=== PATIENT | female | born 1960 | race Caucasian/White ===

== ENCOUNTER 2016-05-14 18:04 | Emergency (ER) | payer OTHER, MEDICARE ==
[~2016-05-14] VITALS: Ht 182.9 cm; Wt 104.3 kg
[~2016-05-14 18:04] MED LIST: ASPIRIN81 M4 PO; Avelox PO; BACTRIM 400-801 EACH PO; CINNAMON PLUS1 EACH PO; CLOPIDOGREL75 M1 PO; COUMADIN 5 MG TA5 MG PO; DILAUDID2 M1 PO; DILAUDID2 MG PO; DOCUSATE SODIU100 MG PO; FLAX OIL1000 M1 PO; HYDRODIURIL 2525 MG PO; HYSINGLA ER20 MG PO; IRON325 M1 PO; LASIX40 M1 PO; METHOCARBAMOL500 M1 PO; MORPHINE SULFAT15 M1 PO; MORPHINE SULFAT15 M3; MORPHINE SULFAT15 M3 PO; NEURONTIN600 M1 PO; PANTOPRAZOLE SO40 M1 PO; PAROXETINE40 MG PO; PAXIL20 M1 PO; PERCOCET 10-321 EACH PO; PERCOCET 325 MG1 TA2 PO; PERCOCET 5-3251 EACH PO; PRINIVIL5 M1 PO; PROAIR HFA8.5 GM INH; PYRIDIUM200 M1 PO; THEO-24400 MG PO; ULTRAM50 M1 PO; VERAPAMIL ER240 MG PO; VERAPAMIL HCL240 MG PO; VICODIN 5-3001 EACH PO; VITAMIN C1000 M2 PO; VITAMIN D2000 UNIT PO; VITAMIN D400 I1 PO; VITAMIN E400 UNI4 PO; ZITHROMAX Z PA250 MG PO; ZYRTEC10 M3 PO; [UNRECOGNIZED DRUG - CODE] PO; [UNRECOGNIZED DRUG - OTHER] PO
[2016-05-14 18:18] VITALS: BP 143/84
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
== END 2016-05-14 19:35 ==
LOC: ERH 18:04
DX: M79.602 Pain in left arm (principal)

== ENCOUNTER 2016-05-18 10:13 | Emergency (ER) | payer OTHER, MEDICARE ==
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
--- NOTE | 2016-05-18 14:03 | ULTRASOUND REPORT ---
EXAMINATION: US TRIPLEX UPPER EXTREMITY, RIGHT CLINICAL INFORMATION: Right upper extremity pain and swelling. Elbow ecchymosis. COMPARISON: None. TECHNIQUE: Color-flow triplex imaging with spectral analysis and compression Doppler were performed on the right upper extremity. FINDINGS: There is normal pulsatile flow within the examined innominate, right internal jugular and subclavian veins without venous thrombosis. The grayscale and pulsed color Doppler images show normal axillary, brachial, basilic and cephalic veins. There is no focal fluid collection within the examined extremity. IMPRESSION: No evidence of deep vein thrombosis in the right upper extremity.
[2016-05-18 14:27] VITALS: BP 130/60
== END 2016-05-18 14:28 ==
LOC: ERH 10:13
DX: M79.89 Other specified soft tissue disorders (principal)
CPT/HCPCS: 96374; 96376

== ENCOUNTER 2016-05-29 16:46 | Inpatient (IN) | payer OTHER, MEDICARE ==
[~2016-05-29] VITALS: Ht 182.9 cm; Wt 104.3 kg
--- NOTE | 2016-05-29 16:57 | NUR ---
EKG DONE IN [place] [facility]
--- NOTE | 2016-05-29 17:00 | NUR ---
Informed waiting has been performed.
--- NOTE | 2016-05-29 17:00 | NUR ---
TRIAGE: PT TO ER C/C CHEST PAIN, NECK PAIN AND RT ARM PAIN, ONSET ABOUT NOON, CONSTANT SINCE ONSET. DESCRIBES BURNING PRESSURE TYPE PAIN. HAS RECENT CARDIAC HX INCLUDING CAROTID STENT IN APRIL. HAD EKG DONE IN [place] PRIOR TO TRIAGE.
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
--- NOTE | 2016-05-29 17:28 | NUR ---
LABS SENT FROM [facility] (BLUE,SST,LAV,ARGUETA)
[2016-05-29 17:35] LABS: ABSOLUTE BASOPHIL COUNT 0.1 /CUMM (0.0-0.2); ABSOLUTE EOSINOPHIL COUNT 0.3 /CUMM (0.0-0.7); ABSOLUTE GRANULOCYTE CT 6.6 /CUMM (1.4-6.5); ABSOLUTE LYMPH COUNT 2.3 /CUMM (1.2-3.4); ABSOLUTE MONOCYTE COUNT 0.4 /CUMM (0.10-0.60); BASOPHIL % 0.9 % (0.0-2.0); EOSINOPHIL % 2.6 % (0-5); GRANULOCYTE % 68.4 % (42.2-75.2); HEMATOCRIT 41.6 % (37-47); MEAN CORPUSCULAR HGB 30.1 PG (27.0-31.0); MEAN CORPUSCULAR HGB CONC 34.4 G/DL (33.0-37.0); MEAN CORPUSCULAR VOLUME 87.5 FL (81.0-99.0); MEAN PLATELET VOLUME 7.3 FL (7.4-10.4); PLATELET COUNT 292 /CUMM (130-400); RBC DISTRIBUTION WIDTH 13.3 % (11.5-14.5); RED BLOOD CELL CT 4.75 /CUMM (4.20-5.40); WHITE BLOOD CELL COUNT 9.7 /CUMM (4.8-10.8)
--- NOTE | 2016-05-29 17:35 | NUR ---
PT STATES SHE TOOK 325 ASA AND HER PLAVIXS TODAY RAN Zheng PA-C IN ROOM FOR EVAL.
[2016-05-29 17:42] LABS: PT 10.5 SEC (9.4-12.5); PTT 38 SEC (25-37)
--- NOTE | 2016-05-29 18:02 | NUR ---
PT STATES SHE DID NOT GET ANY RELIEF FROM THE PRESSURE AFTER THE NITRO PT THEN GIVEN HER PERCOCET WILL CONT. TO MONITOR
--- NOTE | 2016-05-29 18:15 | RADIOLOGY REPORT ---
EXAMINATION: XR PORTABLE CHEST CLINICAL INFORMATION: Chest pain. Rule out cardiomegaly. COMPARISON: 04/21/2016 including CTA chest TECHNIQUE: Portable view of the chest was obtained. FINDINGS: Low lung volumes. Left base atelectasis. No focal consolidation or mass. No pleural effusion or pneumothorax. Normal pulmonary vascularity. Heart size is upper limits of normal, likely accentuated by the AP portable technique. The appearance is similar to the prior CTA chest 04/21/2016. There was neither cardiomegaly nor a pericardial effusion at that time. Lower cervical fusion hardware seen. IMPRESSION: No acute pulmonary disease. Cardiac silhouette is slightly prominent, likely accentuated by AP portable technique.
--- NOTE | 2016-05-29 18:57 | NUR ---
PT STATES HER CHEST PRESSURE IS MUCH BETTER AFTER APPLYING THE NITRO PASTE HEPRIN INFUSING DIRECTED
--- NOTE | 2016-05-29 19:31 | NUR ---
PT REPORTS CHEST PRESSURE IMPROVING. PT APPEARS COMFORTBALE. RESP UNLABORED. NO APPARENT DISTRESS.
--- NOTE | 2016-05-29 19:42 | NUR ---
BED ASSIGNMENT [id number]
[2016-05-29] MEDS ORDERED: ALPRAZOLAM0.25 M1 PO (20:03)
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
[2016-05-29 21:01] VITALS: BP 116/78
--- NOTE | 2016-05-29 22:01 | NUR ---
PT CAME UP FROM ED AT 2029; PT CAME UP VIA STRETCHER ON 2L02 VIA NC; HEPARIN DRIP IN LH RUNNING AT 20U/HR; PT A/Ox3 BEING ACCOMPANIED BY ; PT ON HEART MONITOR; UPON ARRIVAL, PT SWITCHED TO OUR TELE MONITOR AND 2L02 NC; PT ORIENTED TO ROOM, GIVEN CALL MALCOLM; ASSESSMENT DONE; NO CHEST PAIN AT THIS TIME
[2016-05-29] MEDS ORDERED: CRESTOR10 M1 PO (22:05)
[2016-05-30 02:24] LABS: PTT 37 SEC (25-37)
--- NOTE | 2016-05-30 08:38 | PN- Housestaff ---
Subjective Follow-up For: Chest pain Complaints: no complaints Tele-Events Since Last Visit: Bigeminy/normal sinus rhythm./PVC;HR -60-70/min Subjective: Patient is seen and examined at the bedside. She was not having any active complain. She denies of any chest pain, nausea, vomiting, dizziness, chest pressure. Review of Systems Constitutional: Denies: no symptoms. EENTM: Denies: no symptoms. Cardiovascular: Denies: no symptoms. Respiratory: Denies: no symptoms. Gastrointestinal: Denies: no symptoms. Genitourinary: Denies: no symptoms. Musculoskeletal: Denies: no symptoms. Skin: Denies: no symptoms. Neurological/Psychological: Denies: no symptoms. Objective Last 24 Hrs of Vital Signs/I&O Vital Signs Date Time Temp Pulse Resp B/P Pulse O2 O2 Flow FiO2 Ox Delivery Rate 05/30 1501 98.2 80 20 126/78 94 Room Air 05/30 0919 97.8 76 20 120/70 05/30 0918 97.8 76 20 120/70 05/30 0856 97.8 76 20 120/70 100 Room Air 05/30 0000 Nasal 2.0L Cannula 05/29 2208 96 Nasal 2.0L Cannula 05/29 2101 98.2 77 20 116/78 97 Nasal 2.0L Cannula 05/29 1934 75 18 107/62 96 Nasal Cannula 05/29 1856 69 16 101/56 98 Room Air 05/29 1749 98.0 81 16 125/64 98 Nasal 2.0L Cannula 05/29 1736 98 Room Air 05/29 1656 98.3 82 20 114/75 97 Room Air Intake & Output 05/30 1600 05/30 0800 05/30 0000 Intake Total 1600 300 Output Total 900 Balance 700 300 Intake, Oral 1600 300 Output, Urine 900 Patient 104.326 kg Weight Physical Exam General Appearance: Alert, Oriented X3, Cooperative, No Acute Distress Skin: No Rashes, No Breakdown, No Significant Lesion HEENT: Atraumatic, PERRLA, EOMI Neck: Supple, No JVD Cardiovascular: Regular Rate, Normal S1, Normal S2 Lungs: Clear to Auscultation, Normal Air Movement Abdomen: Normal Bowel Sounds, Soft, No Tenderness Neurological: Normal Gait, Normal Speech Extremities: No Clubbing, No Cyanosis, No Edema, Normal Pulses Vascular: Normal Pulses Assessment/Plan Assessment: 55-year-old chronic smoker female with PMH CAD sp stent in Apr 2016, HTN, HLD, frequent PVCs, chronic pain from OA and RA, not on NSAIDs due to allergy, hyperparathyroidism, asthma, presented to the ED for chest pressure. Vital signs-temperature 98.2, pulse 80, respiratory rate 20, blood pressure 126/ 78, SPO2 94% Problem list - Unstable angina/non-ST elevation IL Coronary artery disease s/p stent in RCA in April 2016 Hypertension Hyperlipidemia Chronic OA/rheumatoid arthritis Hyperparathyroidism Asthma Plan- We will follow Dr. Michaud's recommendation According to him, patient may need nuclear stress test as her troponin and EKG were normal to rule out any ischemia, as patient had stent recently According to Dr. Michaud patient can go home if the nuclear stress test comes back negative, with advice to follow Dr. Michaud within a week of discharge. we stopped the heparin drip and nitroglycerin before patient went for stress test. We will continue all home medication Diet-heart healthy diet DVT prophylaxis-ALP S/heparin CODE STATUS-full code Problem List: 1. Chest pain 2. Hyperlipidemia 3. Hypertension 4. Smoking Pain Ratin Pain Location: Chest Pain Goal: Remain pain free Pain Plan: mild to moderate Tomorrow's Labs & Rationales: none DVT/Prophylaxis: mechanical, pharmacological
[2016-05-30 08:56] VITALS: BP 120/70
[2016-05-30 15:01] VITALS: BP 126/78
--- NOTE | 2016-05-30 15:06 | PN- Cardiology ---
Subjective Subjective: * Minimal chest discomfort that is similar to a chronic discomfort noted over the past two years. The pressure that the patient came in with has abated. * Normal cardiac enzymes x three sets Objective Vital Signs and I&Os Vital Signs Date Time Temp Pulse Resp B/P Pulse O2 O2 Flow FiO2 Ox Delivery Rate 05/30 1501 98.2 80 20 126/78 94 Room Air 05/30 0919 97.8 76 20 120/70 05/30 0918 97.8 76 20 120/70 05/30 0856 97.8 76 20 120/70 100 Room Air 05/30 0000 Nasal 2.0L Cannula 05/29 2208 96 Nasal 2.0L Cannula 05/29 2101 98.2 77 20 116/78 97 Nasal 2.0L Cannula 05/29 1934 75 18 107/62 96 Nasal Cannula 05/29 1856 69 16 101/56 98 Room Air 05/29 1749 98.0 81 16 125/64 98 Nasal 2.0L Cannula 05/29 1736 98 Room Air 05/29 1656 98.3 82 20 114/75 97 Room Air Intake & Output 05/30 1600 05/30 0800 05/30 0000 05/29 1600 05/29 0800 05/29 0000 Intake Total 1600 300 Output Total 900 Balance 700 300 Intake, Oral 1600 300 Output, Urine 900 Patient 230 lb Weight Physical Exam: General: WD/ WN female in NAD; alert and oriented x 3 Neck: no JVD, no carotid bruit Heart: RRR with ectopy Lungs: clear clear bilaterally Extremities: no edema Assessment/Plan Assessment/Plan * This patient has normal troponins despite prolonged chest discomfort and a normal appearing ECG without ischemic changes. I do not have a high suspicion of an ACS. Nevertheless, due to her recent stent placement we will risk stratify her with a treadmill nuclear stress test. Stop her NTG paste and IV heparin. * If the patient remains pain free off the NTG and has a normal stress test then she will be discharged to home on her usual medications with follow up in the office in one week. Continue telemetry? Yes
--- NOTE | 2016-05-30 16:52 | Patient Discharge Instructions ---
Discharge Instructions General Discharge Information You were seen/treated for: Chest pain, probably angina Special Instructions: Please follow-up with Dr. Michaud within a week of discharge Diet Continue normal diet: No Recommended Diet: Heart Healthy Activity Full Activity/No Limits: No (as tolerated) Acute Coronary Syndrome Inclusion Criteria At DC or during hospital stay patient has or had the following: ACS DIAGNOSIS Yes Discharge Core Measures Meds if any: Prescribed or Continued at Discharge Meds if any: NOT Prescribed or Continued at Discharge Congestive Heart Failure Inclusion Criteria At DC or during hospital stay patient has or had the following: CHF DIAGNOSIS No Discharge Core Measures Meds if any: Prescribed or Continued at Discharge Meds if any: NOT Prescribed or Continued at Discharge Cerebrovascular accident Inclusion Criteria At DC or during hospital stay patient has or had the following: CVA/TIA Diagnosis No Discharge Core Measures Meds if any: Prescribed or Continued at Discharge Meds if any: NOT Prescribed or Continued at Discharge Venous thromboembolism Inclusion Criteria VTE Diagnosis No VTE Type NONE VTE Confirmed by (Test) NONE Discharge Core Measures - Per Current guidelines, there needs to be overlap - treatment for the first 5 days of Warfarin therapy. - If discharged on Warfarin prior to 5 days of - overlap therapy, the patient will need to be - assessed for post discharge needs including - *Post discharge parental anticoagulation - *Warfarin and/or parental anticoagulation education - *Follow up date to check INR post discharge At least 5 days overlap therapy as Inpatient No Meds if any: Prescribed or Continued at Discharge Warfarin No Note: Overlap Therapy is Warfarin and Anticoagulant Meds if any: NOT Prescribed or Continued at Discharge
[2016-05-30] MEDS ORDERED: ASPIRIN81 M4 PO (17:33)
--- NOTE | 2016-05-30 17:53 | NUCLEAR MEDICINE REPORT ---
EXERCISE STRESS AND RESTING SPECT MYOCARDIAL PERFUSION IMAGING STUDY WITH GATED SPECT IMAGES: CLINICAL INDICATION: Chest pressure, stent in place. PROCEDURE: Regional myocardial perfusion was assessed using a 1 day protocol. Stress images were obtained on 05/30/2016 following the intravenous administration of 25.7 mCi Tc 99m Myoview. Stress was performed using the standard Carlos protocol, with the patient reaching a peak heart rate of 92% maximal predicted heart rate. Rest images were obtained 05/30/2016 following the intravenous administration of 41.7 mCi Technetium 99m Myoview. Single photon emission tomographic (SPECT) images were obtained. SPECT images were acquired in a 64 x 64 matrix of 64 projections over 180 degrees. These were reconstructed into standard short axis, horizontal and vertical long axis cardiac projections. FINDINGS: The post stress images show the left ventricular chamber to be normal in size. There is mildly decreased activity in a small region involving the mid anteroseptal wall and adjacent mid inferoseptal wall. Activity in the other hernandes appears normal. The rest images show improvement in the anteroseptal and inferoseptal wall abnormalities described above with no definite regions of abnormally decreased activity present on the rest images. The other hernandes are unchanged from the post stress images and appear normal. The stress images were obtained using a gated SPECT technique, which permits visualization of wall motion and calculation of the left ventricular ejection fraction. The left ventricular chamber is normal in size. No left ventricular wall motion abnormalities are present. The calculated left ventricular ejection fraction is 55% on the stress study. No previous study is available for comparison. IMPRESSION: A small mild abnormality is noted in the mid anteroseptal and adjacent mid inferoseptal hernandes suspicious for a small region of reversible ischemia in these regions. No other perfusion abnormalities are noted. Left ventricular wall motion and ejection fraction are normal.
--- NOTE | 2016-06-26 12:27 | Discharge Summary ---
Visit Information Visit Dates Admission Date: 05/29/16 Discharge Date: 05/30/16 Hospital Course Course Attending Physician: MARYAM ZARAGOZA PhD,DANIAL Garcia Primary Care Physician: DANIAL MCCULLOUGH MD Hospital Course: Nelli is a 55 year old female with history of hypertension and asthma. After multiple admissions in April for chest discomfort this patient underwent a cardiac catheterization with stent placement.She had been doing well post procedure until earlier today when she suddenly noted a moderate to severe precordial chest pressure radiating to her right arm. This discomfort was associated with mild nausea and diaphoresis. She also notes mild shortness of breath and palpitations. Her ECG does not show any acute ischemic changes at present and his first troponin is normal. Nelli also reports palpitations and occasional chest fluttering associated with lightheadedness. These palpitations tend to be more prominent when lying down. She has frequent PVC's that are not new for her. Finally, this patient has hyperparathyroidism with increased urinary calcium and a serum calcium level that is at the upper limits of normal. This patient was ruled out for an [place] and felt improved. Our plan was to perform an outpatient stress test to risk stratify for ischemia. An echo showed mild septal hypertrophy with impaired LV relaxation and normal EF of 60%. Mild PI and trace MR were also noted. Allergies: Coded Allergies: Penicillins (Severe, ANAPHYLAXIS 05/29/16) cefaclor (Severe, ANAPHYLAXIS 05/29/16) cephalexin (Severe, ANAPHYLAXIS 05/29/16) garlic (Severe, ANAPHALACTIC 05/29/16) latex (Severe, ANAPHYLAXIS 05/29/16) NSAIDS (Non-Steroidal Anti-Inflamma (ANAPHYLAXIS 05/29/16) chlorhexidine (RASH FROM HIBICLENS SCRUB 05/29/16) Uncoded Allergies: CLEANING CHEMICALS (CAN TRIGGER ASTHMA 01/26/15) FRAGRANCE (CAN TRIGGER ASTHMA 07/02/15) STEROID (RESP, RASH 07/02/15) TOXICODENDRON (UNKNOWN 07/02/15) Disposition Summary Disposition Principal Diagnosis: chest pain Additional Diagnosis: none Discharge Disposition: home or self care Discharge Instructions General Discharge Information Code Status: Full Code Patient's Diet: low fat/ low cholesterol Patient's Activity: as tolerated Follow-Up Instructions/Appts: Follow up in the office in one week. Medications at Discharge Discharge Medications: Continue taking these medications: Lisinopril (Prinivil) 5 MG TABLET 1 Tablet ORAL DAILY Comments: Last Taken:02/03/15 Time:8:47am DOCUMENTED PER CMR DURING PRE-SX INTERVIEW Pantoprazole Sodium (Pantoprazole Sodium) 40 MG TABLET.DR 1 Tablet ORAL DAILY BEFORE BREAKFAST Comments: took prilosect while admited last taken: 02/03/15 time: 5:52am DOCUMENTED PER CMR DURING PRE-SX INTERVIEW Gabapentin (Gabapentin) 600 MG TABLET 600 Milligram ORAL THREE TIMES DAILY Qty = 180 Comments: Last Taken:02/03/15 Time:5:52am DOCUMENTED PER CMR DURING PRE-SX INTERVIEW Flaxseed Oil (Flax Oil) 1,000 MG SGL 1 Tablet ORAL TWICE DAILY Comments: DOCUMENTED PER CMR DURING PRE-SX INTERVIEW Cetirizine Hydrochloride (Zyrtec) 10 MG TAB 1 Tablet ORAL DAILY Comments: DOCUMENTED PER CMR DURING PRE-SX INTERVIEW VERAPAMIL HCL (Verapamil ER) [address] 1 Tablet ORAL DAILY Comments: Last Taken:02/03/15 Time:8:52am DOCUMENTED PER CMR DURING PRE-SX INTERVIEW PAROXETINE HCL (Paroxetine Hydrochloride) 20 MG TAB 60 Milligram ORAL DAILY Comments: Last Taken:02/03/15 Time:1113 DOCUMENTED PER CMR DURING PRE-SX INTERVIEW Furosemide (Lasix) 40 MG TAB 1 Tablet ORAL DAILY Comments: Last Taken: last took 20mg on 02/03/15 Time:8:52am DOCUMENTED PER CMR DURING PRE-SX INTERVIEW Ascorbic Acid (Vitamin C) 1,000 MG TAB 1 Tablet ORAL TWICE DAILY Comments: DOCUMENTED PER CMR DURING PRE-SX INTERVIEW Cinnamon Bark/Chromium Picolin (Cinnamon Plus Chromium Capsule) 500 MG-100 MCG CAPSULE 1,000 Milligram ORAL TWICE DAILY Comments: PER PT Albuterol Sulfate (Proair Hfa) 90 MCG HFA.AER.AD 2 Puff Inhale through mouth Q4H as needed for ASTHMA Comments: NOT GIVEN Vitamin E Acetate (Vitamin E) 400 UNIT CAPSULE 1 Capsule ORAL DAILY Comments: PER PT Oxycodone HCl/Acetaminophen (Percocet 10-325 MG Tablet) 10 MG-325 MG TABLET 1 Tablet ORAL 2 x Daily as needed as needed for PAIN Cholecalciferol (Vitamin D3) (Vitamin D) 2,000 UNIT CAPSULE 1 Capsule ORAL DAILY Clopidogrel Bisulfate (Clopidogrel) 75 MG TABLET 1 Tablet ORAL DAILY Qty = 30 Theophylline Anhydrous (Teja-24) 400 MG CAP.ER.24H 2 Tablet ORAL DAILY Days = 28 Alprazolam (Alprazolam) 0.25 MG TABLET 0.25 Milligram ORAL DAILY BEFORE BREAKFAST Qty = 20 Rosuvastatin Calcium (Crestor) 10 MG TABLET 1 Tablet ORAL BEDTIME The following medications have been changed: Old: Aspirin (Aspirin*) 81 MG TAB.CHEW 1 Tablet ORAL DAILY Qty = 30 New: Aspirin (Aspirin*) 81 MG TAB.CHEW 2 Tablet ORAL DAILY Qty = 30 Copies To: MARYAM ZARAGOZA PhD,DANIAL Garcia Attending MD Review Statement Documenting Attending: MARYAM ZARAGOZA PhD,DANIAL Garcia
== END 2016-05-30 18:07 | DRG 313 ==
LOC: ENRESERVTM → ENRESERVDT → ERH 16:46 → 1NO 18:47 → ERHI 18:47 → 1NO 20:30
PROVIDERS: Emergency Medicine; ADMIT Internal Medicine Interventional Cardiology
DX: R07.9 Chest pain, unspecified (principal); I25.10 Atherosclerotic heart disease of native coronary artery without angina pectoris; I10 Essential (primary) hypertension; M06.9 Rheumatoid arthritis, unspecified; J45.909 Unspecified asthma, uncomplicated; K21.9 Gastro-esophageal reflux disease without esophagitis; M79.7 Fibromyalgia; F17.210 Nicotine dependence, cigarettes, uncomplicated
CPT/HCPCS: 1NP; 6020; 78452; 93005; 93010; 93016; 93017; A9502; G0378; J1644; J3490; J7060

== ENCOUNTER 2016-07-28 14:24 | Observation (INO) | payer OTHER, MEDICARE ==
[~2016-07-28] VITALS: Ht 182.9 cm; Wt 106.6 kg
[~2016-07-28 14:24] MED LIST changes: +ALPRAZOLAM0.25 M1 PO; +CRESTOR10 M1 PO
--- NOTE | 2016-07-28 14:36 | NUR ---
Informed waiting has been performed.
--- NOTE | 2016-07-28 14:36 | NUR ---
TRIAGE: PT TO ER C/C PAIN TO MID CHEST WITH RADIATION UP TO SHOULDER AND MID BACK PAIN. ONSET WITH BACK PAIN A WEEK AGO AND OTHER PAIN LAST NIGHT. WAS SENT TO ER BY DR FRANCISCO TO R/O CLOT. PT WAS ADMITTED IN MAY FOR ?CLOT. WAS STARTED ON HEPARIN. TAKES PLAVIX AND ASPIRIN DAILY. HAD EKG DONE IN [place] PRIOR TO TRIAGE, NSR 88.
--- NOTE | 2016-07-28 14:50 | NUR ---
IV EST #20 RH
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
--- NOTE | 2016-07-28 15:15 | NUR ---
LABS DRAWN AND SENT TO THE LAB
--- NOTE | 2016-07-28 15:20 | NUR ---
PT TO RAD VIA STRETCHER
[2016-07-28 15:21] LABS: ABSOLUTE BASOPHIL COUNT 0.1 /CUMM (0.0-0.2); ABSOLUTE EOSINOPHIL COUNT 0.2 /CUMM (0.0-0.7); ABSOLUTE GRANULOCYTE CT 7.3 /CUMM (1.4-6.5); ABSOLUTE LYMPH COUNT 2.2 /CUMM (1.2-3.4); ABSOLUTE MONOCYTE COUNT 0.4 /CUMM (0.10-0.60); BASOPHIL % 0.6 % (0.0-2.0); GRANULOCYTE % 71.8 % (42.2-75.2); HEMATOCRIT 43.5 % (37-47); MEAN CORPUSCULAR HGB 29.4 PG (27.0-31.0); MEAN CORPUSCULAR HGB CONC 33.5 G/DL (33.0-37.0); MEAN PLATELET VOLUME 7.7 FL (7.4-10.4); PLATELET COUNT 297 /CUMM (130-400); RBC DISTRIBUTION WIDTH 13.1 % (11.5-14.5); RED BLOOD CELL CT 4.95 /CUMM (4.20-5.40); WHITE BLOOD CELL COUNT 10.2 /CUMM (4.8-10.8)
--- NOTE | 2016-07-28 15:26 | NUR ---
NAHUM Briseno AT BEDSIDE
[2016-07-28] MEDS ORDERED: NITROGLYCERIN1 EACH TOP (15:41)
--- NOTE | 2016-07-28 15:52 | RADIOLOGY REPORT ---
EXAMINATION: XR CHEST CLINICAL INFORMATION: Chest pain COMPARISON: 05/29/2016 TECHNIQUE: 2 views of the chest were obtained. FINDINGS: Cervical fusion hardware is noted. The lungs are well expanded. There is no focal consolidation, edema, or effusion. No pneumothorax. The cardiomediastinal silhouette is within normal limits. No acute osseous abnormality. IMPRESSION: No acute pulmonary findings.
--- NOTE | 2016-07-28 15:57 | NUR ---
PT STATES SHE HAS NO RELIEF WITH NITRO NAHUM Briseno AWARE
--- NOTE | 2016-07-28 16:04 | NUR ---
NOTRO PASTE ADMIN TO PT
--- NOTE | 2016-07-28 16:29 | NUR ---
PT MEDICATED PER EMAR FOR PAIN 02/10
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
--- NOTE | 2016-07-28 17:54 | NUR ---
PT ADMITTED TO ROOM 180-2
--- NOTE | 2016-07-28 18:07 | NUR ---
REPORT GIVEN TO LARRY SOLER
--- NOTE | 2016-07-28 18:33 | NUR ---
MESSAGE LEFT FOR TRANSPORT
[2016-07-28 19:47] VITALS: BP 104/52
--- NOTE | 2016-07-28 23:02 | NUR ---
PT ARRIVED TO FLOOR AT APPROXIMATELY 1900 VIA STRETCHER ACCOMPANIED BY RN AND MST, AT BEDSIDE. VS 104/52 HR 83 02 95% RA TEMP 98.5 RESP 18. PT C/O 10/10 CP AT THIS TIME MD AWARE NEXT EKG/TROP ORDERED FOR 2100. 2MG IV MORPHINE GIVEN PER EMAR WITH MINIMAL RELIEF NOTED. PT IS CALM AND COOPERATIVE, INDEPENDENT TO TOILET AND IN NO SIGNS OF VISIBLE DISTRESS. PT IS NOW RESTING COMFORTABLY IN BED. 2100 TROP WAS NEGATIVE, THIRD TROP/EKG AT 0300. PT ON TELE, WILL CONTINUE TO MONITOR.
[2016-07-29 00:49] VITALS: BP 104/52
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
--- NOTE | 2016-07-29 07:03 | PN- Housestaff ---
Subjective Follow-up For: Chest pain Tele-Events Since Last Visit: Sinus rhythm 67-75 bpm Subjective: I saw and examined the patient today morning she still reports chest pain radiating to the back, sharp, 10/10. Denies any shortness of breath, fever, dizziness, palpitations. Appears more arthritis related, as patient had a history of arthritis. Review of Systems Constitutional: Reports: see HPI. EENTM: Reports: see HPI. Comments: ROS negative except the above. Objective Last 24 Hrs of Vital Signs/I&O Vital Signs Date Time Temp Pulse Resp B/P Pulse O2 O2 Flow FiO2 Ox Delivery Rate 07/29 0049 98.6 69 18 104/52 93 Room Air 07/28 1947 98.5 83 18 104/52 95 Room Air 07/28 1701 98.5 78 18 119/57 97 Room Air 07/28 1527 Room Air 07/28 1433 98.8 91 20 132/73 96 Room Air Intake & Output 07/29 0800 07/29 0000 07/28 1600 Intake Total 800 300 Output Total Balance 800 300 Intake, Oral 800 300 Patient 106.594 kg 106.594 kg Weight Physical Exam General Appearance: Alert, Oriented X3, Cooperative Skin: No Rashes, No Breakdown HEENT: Atraumatic, PERRLA, EOMI Neck: Supple Cardiovascular: Regular Rate, Normal S1, Normal S2, No Murmurs Lungs: Clear to Auscultation, Normal Air Movement Abdomen: Normal Bowel Sounds, Soft, No Tenderness Neurological: Normal Gait, Normal Speech, Strength at 5/5 X4 Ext Extremities: No Clubbing, No Cyanosis, No Edema Vascular: Normal Pulses, Pulses Symmetrical Current Medications: Current Medications Sig/Trung Start time Last Medication Dose Route Stop Time Status Admin Acetaminophen 650 MG Q6P PRN 07/28 1929 AC PO Acetaminophen 1,000 MG Q6P PRN 07/28 193 CAN IV Albuterol Sulfate 2 PUF Q4H PRN 07/28 1830 AC INH Alprazolam 0.25 MG DAILY 07/29 1000 DC PO 08/05 0959 Alprazolam 0.25 MG 07/28 AC 07/28 PO 08/04 2159 2142 Ascorbic Acid 1,000 MG DAILY 07/29 1000 AC PO Aspirin 162 MG DAILY 07/29 1000 AC PO Atorvastatin Calcium 40 MG 1700 07/29 1700 AC PO Cholecalciferol 2,000 IU DAILY 07/29 1000 AC PO Clopidogrel Bisulfate 75 MG DAILY 07/29 1000 AC PO Enoxaparin Sodium 40 MG DAILY 07/29 1000 AC SC Furosemide 40 MG DAILY 07/29 1000 AC PO Gabapentin 600 MG Q8 07/28 2200 AC 07/29 PO 0631 Lisinopril 5 MG DAILY 07/29 1000 AC PO Morphine Sulfate 2 MG Q6-PRN PRN 07/28 1930 AC 07/28 IV 1952 Morphine Sulfate 4 MG ONCE ONE 07/28 1700 DC IV 07/28 1701 Morphine Sulfate 0 .STK-MED ONE 07/28 1629 DC .ROUTE Morphine Sulfate 4 MG ONCE ONE 07/28 1545 DC 07/28 IV 07/28 1546 1628 Nicotine 14 MG DAILY 07/28 1821 AC 07/28 TOP 2017 Nitroglycerin 0.4 MG DAILY 07/29 1000 AC TOP Nitroglycerin 0 .STK-MED ONE 07/28 1604 DC TOP Nitroglycerin 0.4 MG ONCE ONE 07/28 1545 DC 07/28 SL 07/28 1546 1546 Nitroglycerin 1 GM ONCE ONE 07/28 1545 DC 07/28 TOP 07/28 1546 1604 Nitroglycerin 0.4 MG ONCE ONE 07/28 1530 DC 07/28 SL 07/28 1531 1532 Oxycodone/ 2 TAB BID PRN 07/28 1830 AC Acetaminophen PO Paroxetine HCl 60 MG DAILY 07/29 1000 AC PO Theophylline 400 MG Q8 07/28 2200 AC 07/29 PO 0631 Verapamil HCl 240 MG DAILY 07/29 1000 AC PO Last 24 Hrs of Lab/Daniel Results Last 24 Hrs of Labs/Mics: Laboratory Tests 07/29/16 0350: Troponin I < 0.01 07/28/16 2100: Troponin I < 0.01 Assessment/Plan Assessment: 55-year-old female with PMH significant for CAD s/p stent placement in April 2016, HTN, HLD, frequent PVCs, chronic pain from OA and RA not on NSAIDs due to allergy, hyperparathyroidism and asthma presents with 1 day of constant chest pressure associated with back pain, concerning for possible ACS. # Unstable angina Patient carries a recent h/o CAD with stent placement and thus needs a workup to r/o ACS and PE. No significant ST or T wave changes compared to the previous EKG. * Admited to [facility] * [facility] EKGs and trops are negative so far * Appreciate cardio recs (Dr. Michaud) * NG paste 1/2 inch Q6, aspirin and plavix for now * Probable cause of pain is not related to heart, most probably related to her arthritis. * Stable for discharge today. # CAD sp stent/HTN/HLD * Continue home meds lasix 40 mg daily, lisinopril 5 mg daily, verapamil ER 240 daily, crestor # Chronic pain * Continue home meds gabapentin 600 tid, perc 10-325 bid prn # Asthma * Continue home meds albuterol, cetirizine, theophyline # Mental health * Continue home meds paroxetine 60 mg daily, xanax 0.25 mg daily # Nicotine dependence * Nicotine patch 21 daily # GI and other home meds * Continue pantoprazole, cinnamon+chromium, flaxseed, Vit E, vit D3, vit C - Heart healthy diet - Mild pain pathway - DVTppx with SQH and ALPs - Full code Problem List: 1. Arthritis 2. Asthma 3. Chest pain 4. Hypertension 5. Hyperlipidemia Pain Ratin Pain Location: chest pain Pain Goal: Remain pain free Pain Plan: Tyelonol and morphine Tomorrow's Labs & Rationales: none
[2016-07-29 09:07] VITALS: BP 134/86
[2016-07-29 15:51] VITALS: BP 102/64
--- NOTE | 2016-07-29 16:56 | Patient Discharge Instructions ---
Discharge Instructions General Discharge Information You were seen/treated for: chest pain Special Instructions: Please follow up with PCP in a week Please follow up with in a week Diet Continue normal diet: Yes Activity Full Activity/No Limits: Yes Activity Self Limited: Yes Acute Coronary Syndrome Inclusion Criteria At DC or during hospital stay patient has or had the following: ACS DIAGNOSIS No Discharge Core Measures Meds if any: Prescribed or Continued at Discharge Meds if any: NOT Prescribed or Continued at Discharge Congestive Heart Failure Inclusion Criteria At DC or during hospital stay patient has or had the following: CHF DIAGNOSIS No Discharge Core Measures Meds if any: Prescribed or Continued at Discharge Meds if any: NOT Prescribed or Continued at Discharge Cerebrovascular accident Inclusion Criteria At DC or during hospital stay patient has or had the following: CVA/TIA Diagnosis No Discharge Core Measures Meds if any: Prescribed or Continued at Discharge Meds if any: NOT Prescribed or Continued at Discharge Venous thromboembolism Inclusion Criteria VTE Diagnosis No VTE Type NONE VTE Confirmed by (Test) NONE Discharge Core Measures - Per Current guidelines, there needs to be overlap - treatment for the first 5 days of Warfarin therapy. - If discharged on Warfarin prior to 5 days of - overlap therapy, the patient will need to be - assessed for post discharge needs including - *Post discharge parental anticoagulation - *Warfarin and/or parental anticoagulation education - *Follow up date to check INR post discharge At least 5 days overlap therapy as Inpatient No Meds if any: Prescribed or Continued at Discharge Note: Overlap Therapy is Warfarin and Anticoagulant Meds if any: NOT Prescribed or Continued at Discharge
--- NOTE | 2016-07-29 17:01 | PN- Cardiology ---
Subjective Subjective: * chest discomfort has resolved * Normal cardiac enzymes Objective Vital Signs and I&Os Vital Signs Date Time Temp Pulse Resp B/P Pulse O2 O2 Flow FiO2 Ox Delivery Rate 07/29 1551 98.8 68 18 102/64 94 Room Air 07/29 1001 77 104/68 07/29 0959 77 104/68 07/29 0907 97.9 75 18 134/86 93 Room Air 07/29 0049 98.6 69 18 104/52 93 Room Air 07/28 1947 98.5 83 18 104/52 95 Room Air 07/28 1701 98.5 78 18 119/57 97 Room Air Intake & Output 07/29 1600 07/29 0800 07/29 0000 07/28 1600 07/28 0800 07/28 0000 Intake Total 860 800 300 Output Total Balance 860 800 300 Intake, Oral 860 800 300 Patient 235 lb 235 lb Weight Physical Exam: General: WD/ WN female in NAD; alert and oriented x 3 HEENT: NC/ AT, PERRL, EOMI Neck: no JVD, no carotid bruit Heart: RRR w/o murmur Lungs: clear bilaterally Abdomen: soft, NT, +ve bowel sounds Extremities: no edema Assessment/Plan Assessment/Plan * This patient is doing well. She has complete resolution of her chest discomfort with normal cardiac enzymes and no ischemic ECG changes. We will discharge this patient to home with follow up in the office in 1-2 weeks. No changes to pre-admission medications. Continue telemetry? No
--- NOTE | 2016-07-29 18:18 | Discharge Summary ---
Visit Information Visit Dates Admission Date: 07/28/16 Discharge Date: 07/29/16 Hospital Course Course Attending Physician: MARYAM ZARAGOZA PhD,DANIAL Garcia Primary Care Physician: DANIAL MCCULLOUGH MD Hospital Course: 55-year-old female with PMH significant for CAD s/p stent placement in April 2016, HTN, HLD, frequent PVCs, chronic pain from OA and RA not on NSAIDs due to allergy, hyperparathyroidism and asthma presents with 1 day of constant chest pressure associated with back pain, concerning for possible ACS. # Unstable angina Ruled out with EKG/Trops negative X3. NG paste 1/2 inch Q6, aspirin and plavix for now. Probable cause of pain is not related to heart, most probably related to her arthritis. Need to follow up with in 1-2 weeks. For Other chronic stabel conditions, we continued her home medications. - Heart healthy diet - Mild pain pathway - DVTppx with SQH and ALPs - Full code Allergies: Coded Allergies: Penicillins (Severe, ANAPHYLAXIS 07/28/16) cefaclor (Severe, ANAPHYLAXIS 07/28/16) cephalexin (Severe, ANAPHYLAXIS 07/28/16) garlic (Severe, ANAPHALACTIC 07/28/16) latex (Severe, ANAPHYLAXIS 07/28/16) NSAIDS (Non-Steroidal Anti-Inflamma (ANAPHYLAXIS 07/28/16) chlorhexidine (RASH FROM HIBICLENS SCRUB 07/28/16) Uncoded Allergies: CLEANING CHEMICALS (CAN TRIGGER ASTHMA 01/26/15) FRAGRANCE (CAN TRIGGER ASTHMA 07/02/15) STEROID (RESP, RASH 07/02/15) TOXICODENDRON (UNKNOWN 07/02/15) Significant Procedures: CXR - 07/28/16 -- Normal Pertinent Lab Results: troponins negative Disposition Summary Disposition Principal Diagnosis: Chest pain Additional Diagnosis: HTN Asthma Discharge Disposition: home or self care Discharge Instructions General Discharge Information Code Status: Full Code Patient's Diet: Heart healthy diet Patient's Activity: Activity as tolerated Follow-Up Instructions/Appts: Please follow up with and your PCP in a week Medications at Discharge Discharge Medications: Continue taking these medications: Lisinopril (Prinivil) 5 MG TABLET 1 Tablet ORAL DAILY Comments: Last Taken: 07/29/16 Time: 10:00 AM Pantoprazole Sodium (Pantoprazole Sodium) 40 MG TABLET.DR 1 Tablet ORAL DAILY Comments: NOT GIVEN IN HOSPITAL Gabapentin (Neurontin) 600 MG TABLET 1 Tablet ORAL THREE TIMES DAILY Comments: Last Taken: 07/29/16 Time: 1:15 PM Flaxseed Oil (Flax Oil) 1,000 MG CAPSULE 1 Capsule ORAL TWICE DAILY Comments: NOT GIVEN IN HOSPITAL Cetirizine HCl (Zyrtec) 10 MG TABLET 1 Tablet ORAL DAILY Comments: NOT GIVEN IN HOSPITAL Verapamil HCl (Verapamil ER) 240 MG CAP24H.PEL 1 Capsule ORAL DAILY Paroxetine HCl (Paxil) 20 MG TABLET 60 Milligram ORAL DAILY Comments: Last Taken: 07/29/16 Time: 10:00 AM Furosemide (Lasix) 40 MG TABLET 1 Tablet ORAL DAILY Comments: Last Taken: 07/29/16 Time: 10:00 AM Ascorbic Acid (Vitamin C) 1,000 MG TAB.CHEW 1 Tablet ORAL TWICE DAILY Comments: Last Taken: 07/29/16 Time: 10:00 AM Cinnamon Bark/Chromium Picolin (Cinnamon Plus Chromium Capsule) 500 MG-100 MCG CAPSULE 1,000 Milligram ORAL TWICE DAILY Comments: NOT GIVEN IN HOSPITAL Albuterol Sulfate (Proair Hfa) 90 MCG HFA.AER.AD 2 Puff Inhale through mouth Q4H as needed for ASTHMA Comments: NOT GIVEN IN HOSPITAL Vitamin E Acetate (Vitamin E) 400 UNIT CAPSULE 1 Capsule ORAL DAILY Comments: PER PT Oxycodone HCl/Acetaminophen (Percocet 10-325 MG Tablet) 10 MG-325 MG TABLET 1 Tablet ORAL 2 x Daily as needed as needed for PAIN Comments: Last Taken: 07/29/16 Time: 10:00 AM Cholecalciferol (Vitamin D3) (Vitamin D) 2,000 UNIT CAPSULE 1 Capsule ORAL DAILY Comments: Last Taken: 07/29/16 Time: 10:00 AM Clopidogrel Bisulfate (Clopidogrel) 75 MG TABLET 1 Tablet ORAL DAILY Qty = 30 Comments: Last Taken: 07/29/16 Time: 10:00 AM Theophylline Anhydrous (Teja-24) 400 MG CAP.ER.24H 3 Tablet ORAL DAILY Days = 28 Alprazolam (Alprazolam) 0.25 MG TABLET 0.25 Milligram ORAL DAILY Qty = 20 Comments: Last Taken: 07/28/16 Time: 9:45 PM Rosuvastatin Calcium (Crestor) 10 MG TABLET 1 Tablet ORAL BEDTIME Aspirin (Aspirin*) 81 MG TAB.CHEW 2 Tablet ORAL DAILY Qty = 30 Comments: Last Taken: 07/29/16 Time: 10:00 AM Nitroglycerin (Nitroglycerin Patch) 0.4 MG/HOUR PATCH.TD24 1 PATCH On the skin DAILY Qty = 90 Comments: Last Taken: 07/29/16 Time: 10:00 AM Copies To: MARYAM ZARAGOZA PhD,DANIAL Garcia Attending MD Review Statement Documenting Attending: MARYAM ZARAGOZA PhD,DANIAL Garcia
== END 2016-07-29 17:50 ==
LOC: ENRESERVDT → ENRESERVTM → ERH 14:24 → ERHI 17:31 → 1NO 17:31
PROVIDERS: Physician Assistant; ADMIT Internal Medicine Interventional Cardiology
DX: R07.89 Other chest pain (principal); I25.10 Atherosclerotic heart disease of native coronary artery without angina pectoris; I10 Essential (primary) hypertension; E78.5 Hyperlipidemia, unspecified; M19.90 Unspecified osteoarthritis, unspecified site; M06.9 Rheumatoid arthritis, unspecified; E21.3 Hyperparathyroidism, unspecified; J45.909 Unspecified asthma, uncomplicated; F17.200 Nicotine dependence, unspecified, uncomplicated; K21.9 Gastro-esophageal reflux disease without esophagitis; G43.909 Migraine, unspecified, not intractable, without status migrainosus; G89.29 Other chronic pain
CPT/HCPCS: 36415; 93005; 93010; 96372; 96374; 96376; G0378; J1650; J3490

== ENCOUNTER 2016-09-05 08:04 | Emergency (ER) | payer OTHER, MEDICARE ==
[~2016-09-05] VITALS: Ht 182.9 cm; Wt 104.3 kg
[~2016-09-05 08:04] MED LIST changes: +NITROGLYCERIN1 EACH TOP
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
--- NOTE | 2016-09-05 09:19 | RADIOLOGY REPORT ---
EXAMINATION: RIGHT ANKLE 3 VIEWS RIGHT FOOT 3 VIEWS CLINICAL INFORMATION: Dropped log onto right foot and ankle. COMPARISON: X-ray of the right foot 10/17/2012. TECHNIQUE: AP, lateral, oblique views of the right ankle were obtained. AP, lateral, oblique views of the right foot were obtained. FINDINGS: Right ankle: There is normal alignment of the bones. The mortise of the ankle joint is maintained. There is marked soft tissue swelling along the medial aspect of the distal tibia and around the medial malleolus of the left ankle. No displaced fractures are demonstrated. There is a small vascular calcification along the medial distal tibia. There are no radiopaque foreign bodies. Bone density is normal Right foot: There is soft tissue swelling along the medial aspect of the proximal foot. There are no radiopaque foreign bodies. There is a stable osseous tibiale externum adjacent to the medial navicular. There is normal alignment of the bones and no acute fractures are demonstrated. There is a small plantar calcaneal spur. IMPRESSION: 1. There are no fractures or subluxations. 2. There is extensive soft tissue swelling along the distal tibia and adjacent to the medial ankle and proximal foot. 3. There are no radiopaque foreign bodies.
[2016-09-05 09:53] VITALS: BP 130/80
== END 2016-09-05 09:54 ==
LOC: ERH 08:04
DX: S90.01XA Contusion of right ankle, initial encounter (principal); W20.8XXA Other cause of strike by thrown, projected or falling object, initial encounter; Y93.9 Activity, unspecified; Y92.9 Unspecified place or not applicable
CPT/HCPCS: 73610-RT; 73630-RT

== ENCOUNTER → 2016-10-08 | Day surgery (SDC) | payer OTHER, MEDICARE ==
[~2016-10-08] VITALS: Ht 182.9 cm; Wt 104.3 kg
--- NOTE | 2016-10-08 10:49 | Operative Report ---
Operative/Inv Procedure Report Surgery Date: 10/08/16 Name of Procedure: Excision of olecranon bursa right elbow Pre-Operative Diagnosis: Right elbow olecranon bursitis Post-Operative Diagnosis: Same Estimated Blood Loss: scant Surgeon/Drier Take Off Tender: SARAVANAN RENTERIA MD Anesthesia: laryngeal mask airway IV Fluids: See anesthesia record Drains: None Specimens: Right olecranon bursa Tourniquet: See chart Complications: None Condition: Stable Operative Indication: Patient is a 55-year-old female who had a traumatic olecranon bursitis the right elbow. She had a drain several times in the office however she was left with significant scar tissue and swelling and wished to have it excised. Operative/Procedure Note Note: Once informed consent was obtained and the correct limb was identified the patient brought to operating room and placed on table supine position. After initiation of general endotracheal anesthesia tourniquet was placed on the right arm and the right upper extremity is prepped and draped usual sterile fashion. To begin the procedure straight was trimmed incision was made over the olecranon bursa. Sharp dissection carried down through the skin. A carotid bursa and scar tissue was readily identifiable. Using sharp dissection with a #10 blade and pickups the olecranon bursA was excised in block. The specimen was passed off as specimen. The ulnar nerve was located in its proper position behind the medial epicondyle. The wound was then irrigated with sterile saline. The incision was closed with 3-0 Vicryl interrupted sutures and 3-0 nylon interrupted sutures. A sterile dressing was applied and the patient was taken to recovery room in stable condition.
== END ==
LOC: STS 02:43
DX: M70.21 Olecranon bursitis, right elbow (principal); M06.9 Rheumatoid arthritis, unspecified; I10 Essential (primary) hypertension; K21.9 Gastro-esophageal reflux disease without esophagitis; J45.909 Unspecified asthma, uncomplicated; F17.200 Nicotine dependence, unspecified, uncomplicated; I25.10 Atherosclerotic heart disease of native coronary artery without angina pectoris; Z95.5 Presence of coronary angioplasty implant and graft
CPT/HCPCS: 88304; J0131; J2250

== ENCOUNTER 2016-10-19 14:36 | Emergency (ER) | payer OTHER, MEDICARE ==
[~2016-10-19] VITALS: Ht 182.9 cm; Wt 104.3 kg
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
[2016-10-19 17:23] VITALS: BP 138/71
== END 2016-10-19 18:03 ==
LOC: ERH 14:36
DX: T81.31XA Disruption of external operation (surgical) wound, not elsewhere classified, initial encounter (principal)

== ENCOUNTER 2017-08-09 12:21 | Emergency (ER) | payer OTHER, MEDICARE ==
[~2017-08-09] VITALS: Ht 182.9 cm; Wt 99.8 kg
[~2017-08-09 12:21] MED LIST changes: +CYCLOBENZAPRINE5 M2 PO; +DIAZEPAM5 M1 PO; +DOXYCYCLINE HY100 M4 PO; +OXYCODONE HCL5 M2 PO; -VITAMIN C1000 M2 PO; +VITAMIN C1000 M4 PO
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
--- NOTE | 2017-08-09 15:14 | RADIOLOGY REPORT ---
EXAMINATION: XR TOES, RIGHT CLINICAL INFORMATION: Fourth toe pain COMPARISON: None TECHNIQUE: 3 views of the right toes were obtained. FINDINGS: There are no fractures or dislocations. No joint effusion is identified. No bone, joint or soft tissue abnormality is demonstrated. IMPRESSION: Unremarkable examination.
[2017-08-09 15:15] VITALS: BP 128/69
== END 2017-08-09 15:17 ==
LOC: ERH 12:21
DX: S93.501A Unspecified sprain of right great toe, initial encounter (principal); W20.8XXA Other cause of strike by thrown, projected or falling object, initial encounter; Y92.009 Unspecified place in unspecified non-institutional (private) residence as the place of occurrence of the external cause; Y93.9 Activity, unspecified
CPT/HCPCS: 73660-RT

== ENCOUNTER 2017-08-19 13:25 | Emergency (ER) | payer OTHER, MEDICARE ==
[~2017-08-19] VITALS: Ht 182.9 cm; Wt 99.8 kg
[2017-08-19 14:33] LABS: ABSOLUTE BASOPHIL COUNT 0.2 /CUMM (0.0-0.2); ABSOLUTE EOSINOPHIL COUNT 0.3 /CUMM (0.0-0.7); ABSOLUTE GRANULOCYTE CT 6.9 /CUMM (1.4-6.5); ABSOLUTE LYMPH COUNT 2.5 /CUMM (1.2-3.4); ABSOLUTE MONOCYTE COUNT 0.3 /CUMM (0.10-0.60); BASOPHIL % 1.7 % (0.0-2.0); EOSINOPHIL % 3.3 % (0-5); GRANULOCYTE % 67.4 % (42.2-75.2); HEMATOCRIT 42.9 % (37-47); MEAN CORPUSCULAR HGB 30.2 PG (27.0-31.0); MEAN CORPUSCULAR HGB CONC 34.3 G/DL (33.0-37.0); MEAN PLATELET VOLUME 7.1 FL (7.4-10.4); PLATELET COUNT 338 /CUMM (130-400); RBC DISTRIBUTION WIDTH 13.9 % (11.5-14.5); RED BLOOD CELL CT 4.88 /CUMM (4.20-5.40); WHITE BLOOD CELL COUNT 10.3 /CUMM (4.8-10.8)
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
--- NOTE | 2017-08-19 18:54 | RADIOLOGY REPORT ---
EXAMINATION: XR CHEST CLINICAL INFORMATION: Chest pain. COMPARISON: Chest x-ray from 01/09/2017. TECHNIQUE: 2 views of the chest were obtained. FINDINGS: No airspace opacities or pleural effusions are seen. The cardiomediastinal silhouette is normal. No acute osseous abnormality is seen. Anterior cervical fusion hardware partially visualized. IMPRESSION: Clear lungs. No acute process.
[2017-08-19 20:07] VITALS: BP 140/87
== END 2017-08-19 20:23 ==
LOC: ERH 13:25
PROVIDERS: Emergency Medicine
DX: R07.9 Chest pain, unspecified (principal)
CPT/HCPCS: 71046; 80307; 93005; 93010; 96374

== ENCOUNTER 2017-09-30 13:54 | Emergency (ER) | payer OTHER, MEDICARE ==
[~2017-09-30] VITALS: Ht 182.9 cm; Wt 108.9 kg
[2017-09-30 18:40] LABS: ABSOLUTE BASOPHIL COUNT 0.1 /CUMM (0.0-0.2); ABSOLUTE EOSINOPHIL COUNT 0.2 /CUMM (0.0-0.7); ABSOLUTE GRANULOCYTE CT 7.8 /CUMM (1.4-6.5); ABSOLUTE LYMPH COUNT 2.2 /CUMM (1.2-3.4); ABSOLUTE MONOCYTE COUNT 0.4 /CUMM (0.10-0.60); BASOPHIL % 0.7 % (0.0-2.0); EOSINOPHIL % 2.1 % (0-5); GRANULOCYTE % 72.9 % (42.2-75.2); HEMATOCRIT 42.7 % (37-47); MEAN CORPUSCULAR HGB 30.5 PG (27.0-31.0); MEAN CORPUSCULAR VOLUME 89.7 FL (81.0-99.0); MEAN PLATELET VOLUME 7.7 FL (7.4-10.4); PLATELET COUNT 303 /CUMM (130-400); RBC DISTRIBUTION WIDTH 13.4 % (11.5-14.5); RED BLOOD CELL CT 4.76 /CUMM (4.20-5.40); WHITE BLOOD CELL COUNT 10.7 /CUMM (4.8-10.8)
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
--- NOTE | 2017-09-30 19:30 | CT SCAN REPORT ---
EXAMINATION: CT PULMONARY EMBOLISM STUDY CLINICAL INFORMATION: Chest pain. COMPARISON: 01/15/2017. TECHNIQUE: Contiguous helical images of the chest were obtained following the administration of IV contrast. Multiplanar reconstructions were performed. MIPS were obtained and reviewed. DLP: 663 mGy-cm. CONTRAST: 95 mL of Optiray 320 were administered without incident. FINDINGS: The heart is of normal size. There is no pericardial effusion. The great vessels are unremarkable. Specifically, there is no pulmonary arterial filling defect. There is no CT evidence for pulmonary embolism. There are no chest wall masses. Review of lung windows demonstrates that there are neither pleural effusions nor pneumothoraces. There are no consolidations. There is stable left apical scarring. Within the right upper lobe on image 167/599, adjacent to the pleura, there is a stable 3 mm nodule. Limited evaluation of the upper abdomen demonstrates that the liver is of normal size and attenuation without focal lesions. Normal adrenal glands are identified. The patient is status post cholecystectomy. Surgical clips are identified. IMPRESSION: No CT evidence for pulmonary embolism. Stable 3 mm right upper lobe nodule.
--- NOTE | 2017-09-30 19:31 | CT SCAN REPORT ---
EXAMINATION: CT NECK WITHOUT CONTRAST CLINICAL INFORMATION: 56-year-old woman with neck pain and history of parathyroid tumor. COMPARISON: None TECHNIQUE: Helical noncontrast CT images were obtained through the neck. DLP: 553 mGy-cm FINDINGS: The parotid, submandibular, and thyroid glands are normal in appearance. No abnormally enlarged lymph nodes are seen in the neck. The airway, including the nasopharynx, oropharynx, hypopharynx, and larynx remain widely patent. No drainable fluid collection is noted. There has been prior instrumented C5-C7 fusion. Limited assessment of the skull base and lung apices is unremarkable. IMPRESSION: No acute process is seen in the cervical soft tissues.
[2017-09-30 20:14] VITALS: BP 125/67
[2017-09-30] MEDS ORDERED: ZOFRAN ODT4 M1 SL (20:21)
== END 2017-09-30 20:41 ==
LOC: ERH 13:54
PROVIDERS: Physician Assistant
DX: E07.89 Other specified disorders of thyroid (principal); R07.9 Chest pain, unspecified; R11.2 Nausea with vomiting, unspecified; M54.2 Cervicalgia; R13.10 Dysphagia, unspecified; I10 Essential (primary) hypertension; F17.210 Nicotine dependence, cigarettes, uncomplicated
CPT/HCPCS: 93005; 93010; 96374; 96375; J2405

== ENCOUNTER 2018-01-26 10:02 | Emergency (ER) | payer OTHER, MEDICARE ==
[~2018-01-26] VITALS: Ht 182.9 cm; Wt 99.8 kg
[~2018-01-26 10:02] MED LIST changes: +ZOFRAN ODT4 M1 SL
[2018-01-26] MEDS ORDERED: DILAUDID2 M1 PO (13:29)
[2018-01-26] MEDS ORDERED: KEFLEX500 M1 PO (13:29)
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
[2018-01-26] MEDS ORDERED: DOXYCYCLINE HY100 M2 PO (13:36)
[2018-01-26 13:50] VITALS: BP 121/82
== END 2018-01-26 14:30 ==
LOC: ERH 10:02
DX: S60.012A Contusion of left thumb without damage to nail, initial encounter (principal); I10 Essential (primary) hypertension; I48.91 Unspecified atrial fibrillation; F17.210 Nicotine dependence, cigarettes, uncomplicated; W23.0XXA Caught, crushed, jammed, or pinched between moving objects, initial encounter; Y93.89 Activity, other specified; Y92.9 Unspecified place or not applicable